=== PATIENT | female | born 1985 | race Two or more races ===

== ENCOUNTER 2018-11-20 16:36 | Emergency (ER) | payer SELFPAY ==
[~2018-11-20] VITALS: Ht 154.9 cm; Wt 50.0 kg
[2018-11-20 17:11] VITALS: BP 121/70
== END 2018-11-20 19:46 | disposition left against medical advice (07) ==
LOC: EMS 16:37
DX: Z53.21 Procedure and treatment not carried out due to patient leaving prior to being seen by health care provider (principal)

== ENCOUNTER 2022-08-09 14:02 | Emergency (ER) | payer OTHER | END 2022-08-09 16:04 | disposition left against medical advice (07) | LOC: EMS 14:02 | DX: Z04.1 Encounter for examination and observation following transport accident (principal); Z53.21 Procedure and treatment not carried out due to patient leaving prior to being seen by health care provider ==